=== PATIENT | female | born 1990 | race Caucasian/White ===

== ENCOUNTER 2016-12-20 20:42 | Emergency (ER) | payer OTHER ==
[~2016-12-20 20:42] MED LIST: COLA100C PO; IBUP80TA PO; LORT5TAB PO
[2016-12-20] MEDS ORDERED: MECLIZINE 12.5 MG TAB As Ordered ONE (22:58)
[2016-12-20 23:19] LABS: BASO % 0.6 % (0.0-1.0); EOS # 0.1 K/mm3 (0.0-0.50); EOS % 1.7 % (0.0-3.0); LARGE UNSTAINED CELL # 0.1 K/mm3 (0.0-0.4); LARGE UNSTAINED CELL % 1.8 % (0.0-4.0); MEAN CORPUSCULAR HEMOGLOBIN 30.6 pg (27.0-33.0); MEAN CORPUSCULAR HGB CONC 33.3 g/dl (32.0-36.5); MEAN CORPUSCULAR VOLUME 92.1 fl (80.0-96.0); MONO # 0.3 K/mm3 (0.0-0.8); MONO % 3.7 % (0.0-5.0); NEUTROPHILS # 4.4 K/mm3 (1.8-7.7); NEUTROPHILS % 63.1 % (36.0-66.0); PLATELET COUNT, AUTOMATED 231 k/mm3 (150-450); RED CELL DISTRIBUTION WIDTH 11.7 % (11.5-14.5); WHITE BLOOD COUNT 6.9 K/mm3 (4.0-10.0)
[2016-12-20 23:44] LABS: ANION GAP 8 MEQ/L (8-16); BLOOD UREA NITROGEN 10 MG/DL (7-18); CALCIUM LEVEL 9.2 MG/DL (8.5-10.1); CARBON DIOXIDE LEVEL 28 MEQ/L (21-32); CHLORIDE LEVEL 106 MEQ/L (98-107); CREATININE FOR GFR 0.85 MG/DL (0.55-1.02); GLOMERULAR FILTRATION RATE > 60.0 (>60); GLUCOSE, FASTING 85 MG/DL (70-105); POTASSIUM SERUM 3.7 MEQ/L (3.5-5.1); SODIUM LEVEL 142 MEQ/L (136-145)
--- NOTE | 2016-12-21 01:51 | EDDOCDS ---
Nurse's Notes [facility] Name: Amanda Rayo Age: 26 yrs Sex: Female : 1990 Arrival Date: 12/20/2016 Time: 20:42 Bed 12 Private MD: MO Agarwal Diagnosis: Dizziness and giddiness Presentation: 12/20 20:52 Presenting complaint: Patient states: At approximately 1830 has a sensation of jo3 dizziness while breast feeding child. Continuing to have intermittent dizziness and has vomited x1. Adult Sepsis Screening: The patient does not have new or worsening altered mentation. Patient's respiratory rate is less than 22. Systolic blood pressure is greater than 100. Patient has a qSOFA score of 0- Negative Sepsis Screen. Suicide/Homicide risk assessment- the patient denies having any suicidal and/or homicidal ideations and does not present with any other emotional, behavioral or mental health complaints. Status: The patient is a dependent. Transition of care: patient was not received from another setting of care. 20:52 Acuity: ANDRES Level 3 jo3 20:52 Method Of Arrival: Walkin/Carried/Asstd jo3 Triage Assessment: 20:54 General: Appears in no apparent distress, comfortable, Behavior is appropriate for age, jo3 cooperative. Pain: Pain currently is 4 out of 10 on a pain scale. HIV screening NA for this visit Offered previously. Neurological: Level of Consciousness is awake, alert, Oriented to person, place, time, Reports dizziness that worsens with movement and slight FRASER . Respiratory: Airway is patent Respiratory effort is even, unlabored. Derm: Skin is pink, warm & dry. BIBLE READER: 20:54 LMP 12/11/2016 jo3 Historical: - Allergies: Amoxicillin; SULFA (SULFONAMIDES); Toradol; - Home Meds: 1. none - PMHx: Asthma; GERD; - PSHx: ; - Social history: Smoking status: Patient states was never smoker of tobacco. No barriers to communication noted, The patient speaks fluent Maori, Speaks appropriately for age. - Family history: Not pertinent. - : The pt / caregiver states he / she is not on anticoagulants. Home medication list is obtained from the patient. - Exposure Risk Screening:: None identified. Screenin:25 Screening information is obtained from the patient. Fall risk: No risks identified. kas2 Assistance ADL's: requires no assistance with activities of daily living. Abuse/DV Screen: The patient / caregiver reports he/she is: not in a situation that causes fear, pain or injury. Nutritional screening: No deficits noted. Advance Directives: Currently, there is no health care proxy. There is no active DNR order. There is no living will. There is no Power of Vegetable Grower. home support is adequate. Assessment: 22:24 General: Appears in no apparent distress, comfortable, well nourished, well groomed, kas2 Behavior is appropriate for age, cooperative. Pain: Denies pain. Neurological: Level of Consciousness is awake, alert, Oriented to person, place, time, Information Systems Security Developer are equal bilaterally Moves all extremities. Speech is normal, Facial symmetry appears normal, Pupils are PERRLA. Cardiovascular: Capillary refill < 3 seconds Heart tones S1 S2 present Rhythm is sinus rhythm No ectopy. Respiratory: Airway is patent Respiratory effort is even, unlabored, Respiratory pattern is regular, symmetrical, Breath sounds are clear bilaterally. GI:. Derm: Skin is intact, Skin is dry, Skin is pink, warm & dry. Skin temperature is warm. 22:26 GI:. kas2 22:29 GI: Abdomen is obese, Bowel sounds present X 4 quads. Abd is soft and non tender X 4 kas2 quads. Reports nausea. 23:25 General: Appears in no apparent distress, comfortable, Behavior is appropriate for age, kas2 cooperative. Pain: Denies pain. Neurological: Level of Consciousness is awake, alert, Oriented to person, place, time. Cardiovascular: Rhythm is sinus rhythm No ectopy. Respiratory: Airway is patent Respiratory effort is even, unlabored, Respiratory pattern is regular, symmetrical. Derm: Skin is intact, Skin is dry, Skin is pink, warm & dry. Skin temperature is warm. 12/21 01:14 General: Patient resting in bed with friend at bedside. No apparent distress. Appears kas2 comfortable. Denies pain or discomfort at this time. Call newell within reach. Will continue to monitor.. Vital Signs: 12/20 20:45 BP 117 / 69; Pulse 78; Resp 18 S; Temp 96.3(O); Pulse Ox 99% on R/A; Weight 99.79 kg gr2 (R); Height 5 ft. 5 in. (165.10 cm) (R); Pain 2/10; 12/21 01:47 BP 109 / 66; Pulse 105; Resp 18; Temp 98.6; Pulse Ox 98% ; jlm 12/20 20:45 Body Mass Index 36.61 (99.79 kg, 165.10 cm) gr2 Vitals: 12/20 20:45 Log In Time: December 20, 2016 at 20:45. gr2 ED Course: 20:44 Patient visited by Bernadette Ortiz. gr2 20:44 Any [facility] [place] Private Physician. gr2 20:44 Patient moved to Waiting gr2 20:46 Patient visited by Bernadette Ortiz. gr2 20:46 Patient moved to Pre RCE gr2 20:54 Triage Initiated jo3 20:56 Patient visited by Clary Gilbert RN. jo3 21:12 Patient moved to PD2 / lf1 21:26 Patient visited by Lincoln Chirinos PCA. jmv 21:26 EKG done. (by ED staff). Reviewed by Marco Antonio Cosme DO. jmv 21:27 Patient moved to Pre RCE jmv 22:12 Isis Morel RN is Primary Nurse. lf1 22:12 Patient moved to 12 lf1 22:26 Patient visited by Isis Morel RN. kas2 22:30 Patient visited by Isis Morel RN. kas2 22:38 Marco Antonio Cosme DO is Attending Physician. mm11 22:38 Patient visited by Marco Antonio Cosme DO. mm11 22:49 Patient visited by Marco Antonio Cosme DO. mm11 23:16 Patient visited by Isis Morel RN. kas2 23:16 BMP Sent. kas2 23:16 CBC with Diff Sent. kas2 23:16 Inserted saline lock: 20 gauge in right antecubital area and blood collected. The kas2 patient tolerated the procedure well. No procedures done that require assistance. 23:30 Patient visited by Isis Morel RN. kas2 12/21 00:11 Patient visited by Isis Morel RN. kas2 00:11 REPLACED BY [facility] Payment Agreement was scanned into [employer]INK and attached to record. pm4 00:47 Patient visited by Isis Morel RN. kas2 01:26 Patient visited by Isis Morel RN. kas2 01:41 Any [facility] [place] is Referral Physician. mm11 01:47 Patient visited by Sharon Molina, [place] Machine Operator. jlm 01:49 Discontinued IV bleeding controlled, pressure dressing applied, No redness/swelling at kas2 site. 01:50 The patient / caregiver is instructed regarding the plan of care and ED course. kas2 Administered Medications: 12/20 23:16 Drug: NS 0.9% 1000 ml [sodium chloride 0.9 % intravenous solution] Route: IV; Rate: kas2 bolus; Site: right antecubital; 12/21 01:49 Follow up: IV Status: Completed infusion; IV Intake: 1000ml kas2 12/20 23:16 Drug: Meclizine 50 mg [meclizine 12.5 mg tablet (4 tabs)] Route: PO; kas2 Intake: 12/21 01:49 IV: 1000.00ml; Total: 1000.00ml. kas2 Order Results: Lab Order: CBC with Diff; SPEC'M 12/20/16 23:14 Test: WHITE BLOOD COUNT; Value: 6.9; Range: 4.0-10.0; Units: K/mm3; Status: F Test: RED BLOOD COUNT; Value: 4.72; Range: 4.00-5.40; Units: M/mm3; Status: F Test: HEMOGLOBIN; Value: 14.5; Range: 12.0-16.0; Units: g/dl; Status: F Test: HEMATOCRIT; Value: 43.4; Range: 36.0-47.0; Units: %; Status: F Test: MEAN CORPUSCULAR VOLUME; Value: 92.1; Range: 80.0-96.0; Units: fl; Status: F Test: MEAN CORPUSCULAR HEMOGLOBIN; Value: 30.6; Range: 27.0-33.0; Units: pg; Status: F Test: MEAN CORPUSCULAR HGB CONC; Value: 33.3; Range: 32.0-36.5; Units: g/dl; Status: F Test: RED CELL DISTRIBUTION WIDTH; Value: 11.7; Range: 11.5-14.5; Units: %; Status: F Test: PLATELET COUNT, AUTOMATED; Value: 231; Range: 150-450; Units: k/mm3; Status: F Test: NEUTROPHILS %; Value: 63.1; Range: 36.0-66.0; Units: %; Status: F Test: LYMPH %; Value: 29.0; Range: 24.0-44.0; Units: %; Status: F Test: MONO %; Value: 3.7; Range: 0.0-5.0; Units: %; Status: F Test: EOS %; Value: 1.7; Range: 0.0-3.0; Units: %; Status: F Test: BASO %; Value: 0.6; Range: 0.0-1.0; Units: %; Status: F Test: LARGE UNSTAINED CELL %; Value: 1.8; Range: 0.0-4.0; Units: %; Status: F Test: NEUTROPHILS #; Value: 4.4; Range: 1.8-7.7; Units: K/mm3; Status: F Test: LYMPH #; Value: 2.0; Range: 1.5-6.5; Units: K/mm3; Status: F Test: MONO #; Value: 0.3; Range: 0.0-0.8; Units: K/mm3; Status: F Test: EOS #; Value: 0.1; Range: 0.0-0.50; Units: K/mm3; Status: F Test: BASO #; Value: 0.0; Range: 0.0-0.2; Units: K/mm3; Status: F Test: LARGE UNSTAINED CELL #; Value: 0.1; Range: 0.0-0.4; Units: K/mm3; Status: F Lab Order: [facility]; SPEC'M 12/20/16 23:14 Test: GLUCOSE, FASTING; Value: 85; Range: 70-105; Units: MG/DL; Status: F Test: BLOOD UREA NITROGEN; Value: 10; Range: 7-18; Units: MG/DL; Status: F Test: CREATININE FOR GFR; Value: 0.85; Range: 0.55-1.02; Units: MG/DL; Status: F Test: GLOMERULAR FILTRATION RATE; Value: > 60.0; Range: >60; Status: F Test: SODIUM LEVEL; Value: 142; Range: 136-145; Units: MEQ/L; Status: F Test: POTASSIUM SERUM; Value: 3.7; Range: 3.5-5.1; Units: MEQ/L; Status: F Test: CHLORIDE LEVEL; Value: 106; Range: 98-107; Units: MEQ/L; Status: F Test: CARBON DIOXIDE LEVEL; Value: 28; Range: 21-32; Units: MEQ/L; Status: F Test: ANION GAP; Value: 8; Range: 8-16; Units: MEQ/L; Status: F Test: CALCIUM LEVEL; Value: 9.2; Range: 8.5-10.1; Units: MG/DL; Status: F Test Note: ; Units are mL/min/1.73 m2 Chronic Kidney Disease Staging per NKF: Stage I & II GFR >=60 Normal to Mildly Decreased Stage III GFR 30-59 Moderately Decreased Stage IV GFR 15-29 Severely Decreased Stage V GFR <15 Very Little GFR Left ESRD GFR <[address] REPORTER Outcome: 01:42 Discharge ordered by Provider. mm11 01:50 Discharge Assessment: patient administered narcotics - no. The following High Risk [facility] Discharge criteria are identified: None. Discharged to home ambulatory, with friend. Condition: good Condition: stable Condition: improved. No special radiology studies were completed. Property :Personal belongings accompany Pt. 01:50 Patient left the ED. [facility] Signatures: Clary GilbertRN RN [id number] Alyssa Crowley,RN RN lf1 Marco Antonio Cosme, DO mm11 Bernadette Ortiz gr2 Sharon Molina, [place] Machine Operator Unit Isis Grissom RN RN kas2 Lincoln Chirinos, FABRIC WORKER FOREMAN FABRIC WORKER FOREMAN jmv Bob Rojas, Reg Reg pm4 MTDD
--- NOTE | 2016-12-21 01:51 | EDDOCDS ---
Physician Documentation [facility] Name: Amanda Rayo Age: 26 yrs Sex: Female : 1990 Arrival Date: 12/20/2016 Time: 20:42 Bed 12 Private MD: MO Agarwal Disposition: 12/21/16 01:42 Discharged to Home/Self Care. Impression: Dizziness and giddiness. - Condition is Stable. - Discharge Instructions: Dizziness, Vertigo, Vertigo, Bijo-wc-Blgw, Dizziness, Vzfc-yb-[id number]. - Prescriptions for Meclizine 25 mg Oral Tablet - take 1 tablet by ORAL route every 8 hours As needed; 30 tablet. - Medication Reconciliation, Local Pharmacy Hours form. - Follow up: MO Agarwal; When: 2 - 3 days; Reason: Continuance of care. - Problem is an acute exacerbation. - Symptoms have improved. Historical: - Allergies: Amoxicillin; SULFA (SULFONAMIDES); Toradol; - Home Meds: 1. none - PMHx: Asthma; GERD; - PSHx: ; - Social history: Smoking status: Patient states was never smoker of tobacco. No barriers to communication noted, The patient speaks fluent Macedonian, Speaks appropriately for age. - Family history: Not pertinent. - : The pt / caregiver states he / she is not on anticoagulants. Home medication list is obtained from the patient. - Exposure Risk Screening:: None identified. SODA DRIER FEEDER: 12/20 20:54 LMP 12/11/2016 jo3 Vital Signs: 20:45 BP 117 / 69; Pulse 78; Resp 18 S; Temp 96.3(O); Pulse Ox 99% on R/A; Weight 99.79 kg / gr2 220 lbs (R); Height 5 ft. 5 in. (165.10 cm) (R); Pain /; 12/21 01:47 BP 109 / 66; Pulse 105; Resp 18; Temp 98.6; Pulse Ox 98% ; jlm 12/20 20:45 Body Mass Index 36.61 (99.79 kg, 165.10 cm) gr2 MDM: 12/20 20:57 ECG WITH READING ER PHYS+CARDIAG ordered. EDMS 22:50 IV Saline Lock ordered. mm11 22:50 NS 0.9% 1000 ml IV at bolus once ordered. mm11 22:50 Meclizine 50 mg PO once ordered. mm11 22:52 CBC with Diff Ordered. EDMS 22:52 BMP Ordered. EDMS 23:36 Financial registration complete. hs2 23:51 CBC with Diff Reviewed. mm11 23:51 BMP Reviewed. mm11 12/21 00:11 [facility] Payment Agreement was scanned into [employer] and attached to record. pm4 Administered Medications: 12/20 23:16 Drug: NS 0.9% 1000 ml [sodium chloride 0.9 % intravenous solution] Route: IV; Rate: kas2 bolus; Site: right antecubital; 12/21 01:49 Follow up: IV Status: Completed infusion; IV Intake: 1000ml [facility] 12/20 23:16 Drug: Meclizine 50 mg [meclizine 12.5 mg tablet (4 tabs)] Route: PO; kas2 Signatures: Dispatcher [employer] Clary Reese RN RN jo3 Marco Antonio Cosme, DO DO mm11 Marilia Owen, Reg Reg hs2 Isis Morel RN RN kas2 Bob Rojas, Reg Reg pm4 The chart was reviewed and I authenticate all verbal orders and agree with the evaluation and treatment provided.Attachments: 12/21 00:11 [facility] Payment Agreement pm4 MTDD
--- NOTE | 2016-12-22 09:02 | ECGEPIP ---
Stationary ECG Study [facility] - ED Test Date: 2016-12-20 Pat Name: ANETA WREN Department: Room: - Gender: F Child Attendant: ulysses : 1990 Requested By: KATYA Bishop Order Number: [id number] Reading MD: Susana Velazquez Measurements Intervals [place] Rate: 77 P: 18 TN: 126 QRS: 32 QRSD: 98 T: 27 QT: 380 QTc: 431 Interpretive Statements SINUS RHYTHM Electronically Signed On 12-22-2016 9:02:10 EST by Susana Velazquez
--- NOTE | 2016-12-23 02:51 | EDDOCDS ---
Physician Documentation [facility] Name: Amanda Rayo Age: 26 yrs Sex: Female : 1990 Arrival Date: 12/20/2016 Time: 20:42 Bed 12 Private MD: MO Agarwal Disposition: 12/21/16 01:42 Discharged to Home/Self Care. Impression: Dizziness and giddiness. - Condition is Stable. - Discharge Instructions: Dizziness, Vertigo, Vertigo, Fkbw-lx-Tzhc, Dizziness, Snok-vk-Kdjo. - Prescriptions for Meclizine 25 mg Oral Tablet - take 1 tablet by ORAL route every 8 hours As needed; 30 tablet. - Medication Reconciliation, Local Pharmacy Hours form. - Follow up: MO Agarwal; When: 2 - 3 days; Reason: Continuance of care. - Problem is an acute exacerbation. - Symptoms have improved. Historical: - Allergies: Amoxicillin; SULFA (SULFONAMIDES); Toradol; - Home Meds: 1. none - PMHx: Asthma; GERD; - PSHx: ; - Social history: Smoking status: Patient states was never smoker of tobacco. No barriers to communication noted, The patient speaks fluent Romanian, Speaks appropriately for age. - Family history: Not pertinent. - : The pt / caregiver states he / she is not on anticoagulants. Home medication list is obtained from the patient. - Exposure Risk Screening:: None identified. CONSERVATION BIOLOGY PROFESSOR: 12/20 20:54 LMP 12/11/2016 jo3 Vital Signs: 20:45 BP 117 / 69; Pulse 78; Resp 18 S; Temp 96.3(O); Pulse Ox 99% on R/A; Weight 99.79 kg / gr2 220 lbs (R); Height 5 ft. 5 in. (165.10 cm) (R); Pain /; 12/21 01:47 BP 109 / 66; Pulse 105; Resp 18; Temp 98.6; Pulse Ox 98% ; jlm 12/20 20:45 Body Mass Index 36.61 (99.79 kg, 165.10 cm) gr2 MDM: 12/20 20:57 ECG WITH READING ER PHYS+CARDIAG ordered. EDMS 22:50 IV Saline Lock ordered. mm11 22:50 NS 0.9% 1000 ml IV at bolus once ordered. mm11 22:50 Meclizine 50 mg PO once ordered. mm11 22:52 CBC with Diff Ordered. EDMS 22:52 BMP Ordered. EDMS 23:36 Financial registration complete. hs2 23:51 CBC with Diff Reviewed. mm11 23:51 BMP Reviewed. mm11 12/21 00:11 [facility] Payment Agreement was scanned into [employer] and attached to record. pm4 10:14 T-Sheet-- Draft Copy was scanned into [employer] and attached to record. gb 10:14 ECG/EKG was scanned into [employer] and attached to record. gb Administered Medications: 12/20 23:16 Drug: NS 0.9% 1000 ml [sodium chloride 0.9 % intravenous solution] Route: IV; Rate: kas2 bolus; Site: right antecubital; 12/21 01:49 Follow up: IV Status: Completed infusion; IV Intake: 1000ml kas2 12/20 23:16 Drug: Meclizine 50 mg [meclizine 12.5 mg tablet (4 tabs)] Route: PO; kas2 Signatures: Dispatcher [employer] EDMS Aster Smith, Reg Reg gb Clary Gilbert,RN RN jo3 Marco Antonio Cosme, DO mm11 Marilia Owen, Reg Reg hs2 Isis Morel RN RN kas2 Bob Rojas, Reg Reg pm4 The chart was reviewed and I authenticate all verbal orders and agree with the evaluation and treatment provided.Attachments: 12/21 00:11 [facility] Payment Agreement pm4 10:14 T-Sheet-- Draft Copy gb 10:14 ECG/EKG gb Chart Complete MTDD
--- NOTE | 2016-12-23 02:51 | EDDOCDS ---
Physician Documentation [facility] Name: Amanda Rayo Age: 26 yrs Sex: Female : 1990 Arrival Date: 12/20/2016 Time: 20:42 Bed 12 Private MD: MO Agarwal Disposition: 12/21/16 01:42 Discharged to Home/Self Care. Impression: Dizziness and giddiness. - Condition is Stable. - Discharge Instructions: Dizziness, Vertigo, Vertigo, Ilnj-om-Fbdx, Dizziness, Nqfs-[id number]. - Prescriptions for Meclizine 25 mg Oral Tablet - take 1 tablet by ORAL route every 8 hours As needed; 30 tablet. - Medication Reconciliation, Local Pharmacy Hours form. - Follow up: MO Agarwal; When: 2 - 3 days; Reason: Continuance of care. - Problem is an acute exacerbation. - Symptoms have improved. Historical: - Allergies: Amoxicillin; SULFA (SULFONAMIDES); Toradol; - Home Meds: 1. none - PMHx: Asthma; GERD; - PSHx: ; - Social history: Smoking status: Patient states was never smoker of tobacco. No barriers to communication noted, The patient speaks fluent Latvian, Speaks appropriately for age. - Family history: Not pertinent. - : The pt / caregiver states he / she is not on anticoagulants. Home medication list is obtained from the patient. - Exposure Risk Screening:: None identified. VAN DRIVER: 12/20 20:54 LMP 12/11/2016 jo3 Vital Signs: 20:45 BP 117 / 69; Pulse 78; Resp 18 S; Temp 96.3(O); Pulse Ox 99% on R/A; Weight 99.79 kg / gr2 220 lbs (R); Height 5 ft. 5 in. (165.10 cm) (R); Pain /; 12/21 01:47 BP 109 / 66; Pulse 105; Resp 18; Temp 98.6; Pulse Ox 98% ; jlm 12/20 20:45 Body Mass Index 36.61 (99.79 kg, 165.10 cm) gr2 MDM: 12/20 20:57 ECG WITH READING ER PHYS+CARDIAG ordered. EDMS 22:50 IV Saline Lock ordered. mm11 22:50 NS 0.9% 1000 ml IV at bolus once ordered. mm11 22:50 Meclizine 50 mg PO once ordered. mm11 22:52 CBC with Diff Ordered. EDMS 22:52 BMP Ordered. EDMS 23:36 Financial registration complete. hs2 23:51 CBC with Diff Reviewed. mm11 23:51 BMP Reviewed. mm11 12/21 00:11 [facility] Payment Agreement was scanned into [employer] and attached to record. pm4 10:14 T-Sheet-- Draft Copy was scanned into [employer] and attached to record. gb 10:14 ECG/EKG was scanned into MEDHOST and attached to record. gb Administered Medications: 12/20 23:16 Drug: NS 0.9% 1000 ml [sodium chloride 0.9 % intravenous solution] Route: IV; Rate: kas2 bolus; Site: right antecubital; 12/21 01:49 Follow up: IV Status: Completed infusion; IV Intake: 1000ml kas2 12/20 23:16 Drug: Meclizine 50 mg [meclizine 12.5 mg tablet (4 tabs)] Route: PO; kas2 Signatures: Dispatcher [employer] EDMS Aster Smith, Reg Reg gb Clary Gilbert,RN RN jo3 Marco Antonio Cosme, DO mm11 Marilia Owen, Reg Reg hs2 Isis Morel RN RN kas2 Bob Rojas, Reg Reg pm4 The chart was reviewed and I authenticate all verbal orders and agree with the evaluation and treatment provided.Attachments: 12/21 00:11 [facility] Payment Agreement pm4 10:14 T-Sheet-- Draft Copy gb 10:14 ECG/EKG gb Chart Complete MTDD
--- NOTE | 2016-12-23 02:51 | EDDOCDS ---
Nurse's Notes [facility] Name: Aneta Rayo Age: 26 yrs Sex: Female : 1990 Arrival Date: 12/20/2016 Time: 20:42 Bed 12 Private MD: MO Agarwal Diagnosis: Dizziness and giddiness Presentation: 12/20 20:52 Presenting complaint: Patient states: At approximately 1830 has a sensation of jo3 dizziness while breast feeding child. Continuing to have intermittent dizziness and has vomited x1. Adult Sepsis Screening: The patient does not have new or worsening altered mentation. Patient's respiratory rate is less than 22. Systolic blood pressure is greater than 100. Patient has a qSOFA score of 0- Negative Sepsis Screen. Suicide/Homicide risk assessment- the patient denies having any suicidal and/or homicidal ideations and does not present with any other emotional, behavioral or mental health complaints. Status: The patient is a dependent. Transition of care: patient was not received from another setting of care. 20:52 Acuity: ANDRES Level 3 jo3 20:52 Method Of Arrival: Walkin/Carried/Asstd jo3 Triage Assessment: 20:54 General: Appears in no apparent distress, comfortable, Behavior is appropriate for age, jo3 cooperative. Pain: Pain currently is 4 out of 10 on a pain scale. HIV screening NA for this visit Offered previously. Neurological: Level of Consciousness is awake, alert, Oriented to person, place, time, Reports dizziness that worsens with movement and slight FRASER . Respiratory: Airway is patent Respiratory effort is even, unlabored. Derm: Skin is pink, warm & dry. SEASONAL CUSTOMER SERVICE ASSOCIATE: 20:54 LMP 12/11/2016 jo3 Historical: - Allergies: Amoxicillin; SULFA (SULFONAMIDES); Toradol; - Home Meds: 1. none - PMHx: Asthma; GERD; - PSHx: ; - Social history: Smoking status: Patient states was never smoker of tobacco. No barriers to communication noted, The patient speaks fluent Ma[place], Speaks appropriately for age. - Family history: Not pertinent. - : The pt / caregiver states he / she is not on anticoagulants. Home medication list is obtained from the patient. - Exposure Risk Screening:: None identified. Screenin:25 Screening information is obtained from the patient. Fall risk: No risks identified. kas2 Assistance ADL's: requires no assistance with activities of daily living. Abuse/DV Screen: The patient / caregiver reports he/she is: not in a situation that causes fear, pain or injury. Nutritional screening: No deficits noted. Advance Directives: Currently, there is no health care proxy. There is no active DNR order. There is no living will. There is no Power of Horticulture/Floriculture Teacher. home support is adequate. Assessment: 22:24 General: Appears in no apparent distress, comfortable, well nourished, well groomed, kas2 Behavior is appropriate for age, cooperative. Pain: Denies pain. Neurological: Level of Consciousness is awake, alert, Oriented to person, place, time, Golf Course Starter are equal bilaterally Moves all extremities. Speech is normal, Facial symmetry appears normal, Pupils are PERRLA. Cardiovascular: Capillary refill < 3 seconds Heart tones S1 S2 present Rhythm is sinus rhythm No ectopy. Respiratory: Airway is patent Respiratory effort is even, unlabored, Respiratory pattern is regular, symmetrical, Breath sounds are clear bilaterally. GI:. Derm: Skin is intact, Skin is dry, Skin is pink, warm & dry. Skin temperature is warm. 22:26 GI:. kas2 22:29 GI: Abdomen is obese, Bowel sounds present X 4 quads. Abd is soft and non tender X 4 kas2 quads. Reports nausea. 23:25 General: Appears in no apparent distress, comfortable, Behavior is appropriate for age, kas2 cooperative. Pain: Denies pain. Neurological: Level of Consciousness is awake, alert, Oriented to person, place, time. Cardiovascular: Rhythm is sinus rhythm No ectopy. Respiratory: Airway is patent Respiratory effort is even, unlabored, Respiratory pattern is regular, symmetrical. Derm: Skin is intact, Skin is dry, Skin is pink, warm & dry. Skin temperature is warm. 12/21 01:14 General: Patient resting in bed with friend at bedside. No apparent distress. Appears kas2 comfortable. Denies pain or discomfort at this time. Call newell within reach. Will continue to monitor.. Vital Signs: 12/20 20:45 BP 117 / 69; Pulse 78; Resp 18 S; Temp 96.3(O); Pulse Ox 99% on R/A; Weight 99.79 kg gr2 (R); Height 5 ft. 5 in. (165.10 cm) (R); Pain 2/10; 12/21 01:47 BP 109 / 66; Pulse 105; Resp 18; Temp 98.6; Pulse Ox 98% ; jlm 12/20 20:45 Body Mass Index 36.61 (99.79 kg, 165.10 cm) gr2 Vitals: 12/20 20:45 Log In Time: December 20, 2016 at 20:45. gr2 ED Course: 20:44 Patient visited by Bernadette Ortiz. gr2 20:44 Any [facility] is Private Physician. gr2 20:44 Patient moved to Waiting gr2 20:46 Patient visited by Bernadette Ortiz. gr2 20:46 Patient moved to Pre RCE gr2 20:54 Triage Initiated jo3 20:56 Patient visited by Clary Gilbert RN. jo3 21:12 Patient moved to PD2 / lf1 21:26 Patient visited by Lincoln Chirinos PCA. jmv 21:26 EKG done. (by ED staff). Reviewed by Marco Antonio Cosme DO. jmv 21:27 Patient moved to Pre RCE jmv 22:12 Isis Morel RN is Primary Nurse. lf1 22:12 Patient moved to 12 lf1 22:26 Patient visited by Isis Morel RN. kas2 22:30 Patient visited by Isis Morel RN. kas2 22:38 Marco nAtonio Cosme DO is Attending Physician. mm11 22:38 Patient visited by Marco Antonio Cosme DO. mm11 22:49 Patient visited by Marco Antonio Cosme DO. mm11 23:16 Patient visited by Isis Morel RN. kas2 23:16 BMP Sent. kas2 23:16 CBC with Diff Sent. kas2 23:16 Inserted saline lock: 20 gauge in right antecubital area and blood collected. The kas2 patient tolerated the procedure well. No procedures done that require assistance. 23:30 Patient visited by Isis Morel RN. kas2 12/21 00:11 Patient visited by Isis Morel RN. kas2 00:11 [facility] Payment Agreement was scanned into [facility] and attached to record. pm4 00:47 Patient visited by Isis Morel RN. kas2 01:26 Patient visited by Isis Morel RN. kas2 01:41 Any [facility] is Referral Physician. mm11 01:47 Patient visited by Sharon oMlina, Boiling Tub Operator. jlm 01:49 Discontinued IV bleeding controlled, pressure dressing applied, No redness/swelling at kas2 site. 01:50 The patient / caregiver is instructed regarding the plan of care and ED course. [facility] 10:14 T-Sheet-- Draft Copy was scanned into [facility] and attached to record. gb 10:14 ECG/EKG was scanned into [facility] and attached to record. gb 12/22 09:17 EKG-ADULT Returned. EDMS Administered Medications: 12/20 23:16 Drug: NS 0.9% 1000 ml [sodium chloride 0.9 % intravenous solution] Route: IV; Rate: kas2 bolus; Site: right antecubital; 12/21 01:49 Follow up: IV Status: Completed infusion; IV Intake: 1000ml kas2 12/20 23:16 Drug: Meclizine 50 mg [meclizine 12.5 mg tablet (4 tabs)] Route: PO; kas2 Intake: 12/21 01:49 IV: 1000.00ml; Total: 1000.00ml. kas2 Order Results: Lab Order: CBC with Diff; SPEC'M 12/20/16 23:14 Test: WHITE BLOOD COUNT; Value: 6.9; Range: 4.0-10.0; Units: K/mm3; Status: F Test: RED BLOOD COUNT; Value: 4.72; Range: 4.00-5.40; Units: M/mm3; Status: F Test: HEMOGLOBIN; Value: 14.5; Range: 12.0-16.0; Units: g/dl; Status: F Test: HEMATOCRIT; Value: 43.4; Range: 36.0-47.0; Units: %; Status: F Test: MEAN CORPUSCULAR VOLUME; Value: 92.1; Range: 80.0-96.0; Units: fl; Status: F Test: MEAN CORPUSCULAR HEMOGLOBIN; Value: 30.6; Range: 27.0-33.0; Units: pg; Status: F Test: MEAN CORPUSCULAR HGB CONC; Value: 33.3; Range: 32.0-36.5; Units: g/dl; Status: F Test: RED CELL DISTRIBUTION WIDTH; Value: 11.7; Range: 11.5-14.5; Units: %; Status: F Test: PLATELET COUNT, AUTOMATED; Value: 231; Range: 150-450; Units: k/mm3; Status: F Test: NEUTROPHILS %; Value: 63.1; Range: 36.0-66.0; Units: %; Status: F Test: LYMPH %; Value: 29.0; Range: 24.0-44.0; Units: %; Status: F Test: MONO %; Value: 3.7; Range: 0.0-5.0; Units: %; Status: F Test: EOS %; Value: 1.7; Range: 0.0-3.0; Units: %; Status: F Test: BASO %; Value: 0.6; Range: 0.0-1.0; Units: %; Status: F Test: LARGE UNSTAINED CELL %; Value: 1.8; Range: 0.0-4.0; Units: %; Status: F Test: NEUTROPHILS #; Value: 4.4; Range: 1.8-7.7; Units: K/mm3; Status: F Test: LYMPH #; Value: 2.0; Range: 1.5-6.5; Units: K/mm3; Status: F Test: MONO #; Value: 0.3; Range: 0.0-0.8; Units: K/mm3; Status: F Test: EOS #; Value: 0.1; Range: 0.0-0.50; Units: K/mm3; Status: F Test: BASO #; Value: 0.0; Range: 0.0-0.2; Units: K/mm3; Status: F Test: LARGE UNSTAINED CELL #; Value: 0.1; Range: 0.0-0.4; Units: K/mm3; Status: F Lab Order: [facility]; SPEC'M 12/20/16 23:14 Test: GLUCOSE, FASTING; Value: 85; Range: 70-105; Units: MG/DL; Status: F Test: BLOOD UREA NITROGEN; Value: 10; Range: 7-18; Units: MG/DL; Status: F Test: CREATININE FOR GFR; Value: 0.85; Range: 0.55-1.02; Units: MG/DL; Status: F Test: GLOMERULAR FILTRATION RATE; Value: > 60.0; Range: >60; Status: F Test: SODIUM LEVEL; Value: 142; Range: 136-145; Units: MEQ/L; Status: F Test: POTASSIUM SERUM; Value: 3.7; Range: 3.5-5.1; Units: MEQ/L; Status: F Test: CHLORIDE LEVEL; Value: 106; Range: 98-107; Units: MEQ/L; Status: F Test: CARBON DIOXIDE LEVEL; Value: 28; Range: 21-32; Units: MEQ/L; Status: F Test: ANION GAP; Value: 8; Range: 8-16; Units: MEQ/L; Status: F Test: CALCIUM LEVEL; Value: 9.2; Range: 8.5-10.1; Units: MG/DL; Status: F Test Note: ; Units are mL/min/1.73 m2 Chronic Kidney Disease Staging per NKF: Stage I & II GFR >=60 Normal to Mildly Decreased Stage III GFR 30-59 Moderately Decreased Stage IV GFR 15-29 Severely Decreased Stage V GFR <15 Very Little GFR Left ESRD GFR <15 on SUPERVISOR CUTTING DEPARTMENT Radiology Order: EKG-ADULT Test: EKG-ADULT REASON FOR EXAMINATION: Dizziness ; Stationary ECG Study; [facility] - ED; ; Test Date: 2016-12-20; Pat Name: ANETA RAYO Department:; Room: -; Gender: F Upstairs Maid: ulysses; : 1990 Requested By: KATYA Bishop; Order Number: [id number] Reading MD: Susana Velazquez; Measurements; Intervals [place]; Rate: 77 P: 18; AR: 126 QRS: 32; QRSD: 98 T: 27; QT: 380; QTc: 431; Interpretive Statements; SINUS RHYTHM; ; Electronically Signed On 12-22-2016 9:02:10 EST by Susana Velazquez; Outcome: 01:42 Discharge ordered by Provider. mm11 01:50 Discharge Assessment: patient administered narcotics - no. The following High Risk [facility] Discharge criteria are identified: None. Discharged to home ambulatory, with friend. Condition: good Condition: stable Condition: improved. No special radiology studies were completed. Property :Personal belongings accompany Pt. 01:50 Patient left the ED. kas2 Signatures: Dispatcher [employer] EDMS Aster Smith, Reg Reg gb Clary Gilbert,RN RN [id number] Alyssa Crowley,RN RN lf1 Marco Antonio Cosme, DO DO mm11 Bernadette Ortiz gr2 Sharon Molina, Boiling Tub Operator Unit jlIsis Arnold,RN RN kas2 Lincoln Chirinos, HEALTH CARE SOCIAL WORKER HEALTH CARE SOCIAL WORKER jmv Bob Rojas, Reg Reg pm4 Chart Complete MTDD
== END 2016-12-21 01:50 | disposition home or self-care (01) ==
LOC: M ED 20:42
DX: R42 Dizziness and giddiness (principal); J45.909 Unspecified asthma, uncomplicated; K21.9 Gastro-esophageal reflux disease without esophagitis; Z88.0 Allergy status to penicillin; Z88.2 Allergy status to sulfonamides; Z88.8 Allergy status to other drugs, medicaments and biological substances

== ENCOUNTER 2017-05-09 18:33 | Emergency (ER) | payer OTHER ==
[~2017-05-09] VITALS: Ht 165.1 cm; Wt 105.0 kg
[~2017-05-09 18:33] MED LIST changes: -COLA100C PO; +COLA100C5 PO
[2017-05-09] MEDS ORDERED: MULT1CHW39 PO (18:46)
[2017-05-09] MEDS ORDERED: traMADol 50 MG TAB PO ONE (19:45)
[2017-05-09] MEDS ORDERED: IBUP-1022 PO (20:20)
[2017-05-09] MEDS ORDERED: KEFL500C17 PO (20:20)
[2017-05-09] MEDS ORDERED: CEPHALEXIN 500 MG CAP PO ONE (20:30)
[2017-05-09 20:40] VITALS: BP 125/86
--- NOTE | 2017-05-10 00:55 | REP ---
Clinical: Trauma. Technique: AP, lateral, bilateral oblique views left first toe . Findings: The osseous structures and joint spaces are intact and normal. There is no evidence for acute fracture or dislocation. Surrounding soft tissues are unremarkable. No subcutaneous emphysema or radiodense foreign body. Impression: Normal examination. No acute fracture or dislocation. Signed by Jaydon Brown MD 05/10/2017 12:47 A
== END 2017-05-09 20:42 | disposition home or self-care (01) ==
LOC: M ED 20:39
DX: S90.412A Abrasion, left great toe, initial encounter (principal); W17.89XA Other fall from one level to another, initial encounter; Y92.410 Unspecified street and highway as the place of occurrence of the external cause; Y93.55 Activity, bike riding; Y99.8 Other external cause status; J45.909 Unspecified asthma, uncomplicated; Z79.899 Other long term (current) drug therapy; Z88.1 Allergy status to other antibiotic agents; Z88.2 Allergy status to sulfonamides; Z88.8 Allergy status to other drugs, medicaments and biological substances

== ENCOUNTER → 2019-02-18 | Outpatient (REF) | payer OTHER ==
[~2019-02-18] MED LIST changes: +IBUP-1022 PO; +KEFL500C17 PO; +MULT200T7 PO
[2019-02-21 00:06] LABS: RUBEOLA IgG ANTIBODY <25.0 AU/mL (Immune >29.9)
== END ==
LOC: M SFHCLERA 09:43
PROVIDERS: ATTEND Physician Assistant
DX: R21 Rash and other nonspecific skin eruption (principal)

== ENCOUNTER → 2020-03-18 | Outpatient (REF) | payer OTHER | LOC: M SFHCWAGY 10:12 | PROVIDERS: ATTEND Nurse Practitioner Women's Health | DX: Z12.4 Encounter for screening for malignant neoplasm of cervix (principal) ==

== ENCOUNTER 2022-07-09 03:31 | Emergency (ER) | payer OTHER ==
[~2022-07-09] VITALS: Ht 165.1 cm; Wt 105.7 kg
[2022-07-09] MEDS ORDERED: MIDOTAB PO (03:36)
[2022-07-09 04:53] LABS: BASO # 0.1 10^3/uL (0.0-0.2); BASO % 0.3 % (0.0-1.0); EOS # 0.1 10^3/uL (0.0-0.5); EOS % 0.7 % (0.0-3.0); HEMATOCRIT 42.5 % (36.0-47.0); HEMOGLOBIN 14.1 g/dl (12.0-15.5); LYMPH # 1.2 10^3/uL (1.5-5.0); LYMPH % 7.2 % (24.0-44.0); MEAN CORPUSCULAR HEMOGLOBIN 30.8 pg (27.0-33.0); MEAN CORPUSCULAR HGB CONC 33.2 g/dl (32.0-36.5); MEAN CORPUSCULAR VOLUME 92.8 fl (80.0-96.0); MONO # 1.1 10^3/uL (0.0-0.8); MONO % 6.5 % (2.0-8.0); NEUTROPHILS # 14.3 10^3/uL (1.5-8.5); NEUTROPHILS % 84.7 % (36.0-66.0); PLATELET COUNT, AUTOMATED 221 10^3/uL (150-450); RED BLOOD COUNT 4.58 10^6/uL (4.00-5.40); WHITE BLOOD COUNT 16.9 10^3/uL (4.0-10.0)
[2022-07-09] MEDS ORDERED: ONDANSETRON 4MG 2ML VIAL IV ONE (05:20)
[2022-07-09] MEDS ORDERED: MORPHINE 2 MG/ML 1ML VIAL IV ONE (05:20)
[2022-07-09 05:27] LABS: RSV AMPLIFICATION NEGATIVE (NEGATIVE)
[2022-07-09 05:27] LABS: ALBUMIN 3.9 GM/DL (3.2-5.2); ALT/SGPT 29 U/L (12-78); BILIRUBIN,DIRECT 0.1 MG/DL (0.0-0.2); BILIRUBIN,TOTAL 0.7 MG/DL (0.2-1.0); BLOOD UREA NITROGEN 9 MG/DL (7-18); CALCIUM LEVEL 8.8 MG/DL (8.5-10.1); CARBON DIOXIDE LEVEL 24 MEQ/L (21-32); CHLORIDE LEVEL 106 MEQ/L (98-107); CREATININE FOR GFR 0.75 MG/DL (0.55-1.30); GLOMERULAR FILTRATION RATE > 60.0 (>60); GLUCOSE, FASTING 110 MG/DL (70-100); LIPASE 99 U/L (73-393); POTASSIUM SERUM 3.7 MEQ/L (3.5-5.1); SODIUM LEVEL 135 MEQ/L (136-145)
[2022-07-09 06:23] LABS: BACTERIA, URINE MOD AMOUNT; HYALINE CAST, URINE NONE SEEN /lpf (0-1); SQUAMOUS EPITHELIAL CELL URINE MOD AMOUNT /hpf (SMALL AMT)
[2022-07-09] MEDS ORDERED: CIPROFLOXACIN 400 MG in IV 1 EA IV ONE (07:55)
[2022-07-09] MEDS ORDERED: MORPHINE 4 MG/ML 1ML VIAL/SYRINGE IV ONE (09:30)
[2022-07-09] MEDS ORDERED: NS 1,000 ML IV ONE (09:30)
[2022-07-09] MEDS ORDERED: metroNIDAZOLE (FLAGYL) 500MG TABLET PO ONE (11:55)
[2022-07-09] MEDS ORDERED: HYDR-3713 PO (11:56)
[2022-07-09] MEDS ORDERED: CIPR-249 PO (11:56)
[2022-07-09] MEDS ORDERED: METR-265 PO (11:56)
[2022-07-09] MEDS ORDERED: ONDA4TAB6 PO (11:56)
[2022-07-09 12:05] VITALS: BP 111/65
== END 2022-07-09 12:10 | disposition home or self-care (01) ==
LOC: M ED 03:31
DX: R10.32 Left lower quadrant pain (principal); R82.71 Bacteriuria; R93.2 Abnormal findings on diagnostic imaging of liver and biliary tract; Z88.1 Allergy status to other antibiotic agents; Z88.2 Allergy status to sulfonamides; Z88.8 Allergy status to other drugs, medicaments and biological substances
CPT/HCPCS: 74176; 76856; 80048; 80076; 81000; 81015; 83605; 83690; 84702; 85025; 87631; 93976; 96365; 96366; 96375; 96376; 99284; J0744; J2270; J2405

== ENCOUNTER → 2022-07-18 | Outpatient (REF) | payer OTHER ==
[~2022-07-18] MED LIST changes: +CIPR-249 PO; +HYDR-3713 PO; +METR-265 PO; +MIDOTAB PO; +ONDA4TAB6 PO
[2022-07-18 17:53] LABS: APPEARANCE, URINE MANUAL HAZY (CLEAR); COLOR, URINE MANUAL YELLOW (YELLOW)
[2022-07-18 17:54] LABS: BILIRUBIN, URINE MANUAL NEGATIVE (NEGATIVE); GLUCOSE, URINE (UA) MANUAL NEGATIVE (NEGATIVE); KETONE, URINE MANUAL NEGATIVE (NEGATIVE); PROTEIN, URINE MANUAL NEGATIVE (NEGATIVE); UROBILINOGEN, URINE MANUAL NORMAL (NORMAL)
[2022-07-18 17:55] LABS: BLOOD URINE MANUAL POSITIVE (NEGATIVE); LEUKOCYTE ESTERASE, URINE MAN NEGATIVE (NEGATIVE); NITRITE, URINE MANUAL NEGATIVE (NEGATIVE)
[2022-07-18 18:07] LABS: BACTERIA, URINE SMALL AMOUNT; HYALINE CAST, URINE NONE SEEN /lpf (0-1); RBC, URINE NONE SEEN /hpf (0-3); SQUAMOUS EPITHELIAL CELL URINE SMALL AMOUNT /hpf (SMALL AMT); WBC, URINE NONE SEEN /hpf (0-3)
== END ==
LOC: M SMT 17:10
PROVIDERS: ATTEND Physician Assistant
DX: R31.21 Asymptomatic microscopic hematuria (principal)

== ENCOUNTER → 2023-03-05 | Outpatient (REF) | payer OTHER | LOC: M SFHCWAGY 10:07 | PROVIDERS: ATTEND Nurse Practitioner Family | DX: Z12.4 Encounter for screening for malignant neoplasm of cervix (principal); Z01.419 Encounter for gynecological examination (general) (routine) without abnormal findings; Z77.9 Other contact with and (suspected) exposures hazardous to health ==

== ENCOUNTER → 2024-02-14 | Outpatient (CLI) | payer OTHER | LOC: M RAD 15:04 | PROVIDERS: ATTEND Physician Assistant Medical | DX: M71.22 Synovial cyst of popliteal space [Baker], left knee (principal) ==

== ENCOUNTER → 2024-04-11 | Outpatient (CLI) | payer OTHER | LOC: M WHC 13:47 | PROVIDERS: ATTEND Nurse Practitioner Family | DX: E27.8 Other specified disorders of adrenal gland (principal); N88.8 Other specified noninflammatory disorders of cervix uteri ==

== ENCOUNTER → 2024-06-16 | Outpatient (CLI) | payer OTHER ==
[~2024-06-16] MED LIST changes: +ONDA-282 PO; -ONDA4TAB6 PO
== END ==
LOC: M RAD 13:14
PROVIDERS: ATTEND Nurse Practitioner Family
DX: N83.202 Unspecified ovarian cyst, left side (principal)

== ENCOUNTER → 2024-06-25 | Outpatient (REF) | payer OTHER ==
[2024-06-25 14:30] LABS: APPEARANCE, URINE HAZY (CLEAR); BACTERIA, URINE AUTO 1+ (NEGATIVE); BILIRUBIN, URINE AUTO NEGATIVE (NEGATIVE); BLOOD, URINE BLOOD 1+ (NEGATIVE); CALCIUM OXALATE CRYSTALS MODERATE; COLOR, URINE YELLOW (YELLOW); GLUCOSE, URINE (UA) AUTO NEGATIVE (NEGATIVE); KETONE, URINE AUTO NEGATIVE (NEGATIVE); LEUKOCYTE ESTERASE, URINE AUTO NEGATIVE (NEGATIVE); MUCUS, URINE SMALL (NEGATIVE); NITRITE, URINE AUTO NEGATIVE (NEGATIVE); PROTEIN, URINE AUTO NEGATIVE (NEGATIVE); RBC, URINE AUTO 4 /HPF (0-3); SPECIFIC GRAVITY URINE AUTO 1.023 (1.002-1.035); SQUAMOUS EPITHELIAL CELL UR AU 0 /HPF (0-6); UROBILINOGEN, URINE AUTO 0.2 mg/dL (0.0-2.0); WBC, URINE AUTO 2 /HPF (0-3)
== END ==
LOC: M SMT 12:43
PROVIDERS: ATTEND Physician Assistant
DX: D49.4 Neoplasm of unspecified behavior of bladder (principal)

== ENCOUNTER → 2024-06-26 | Outpatient (REF) | payer OTHER | LOC: M LAB REF 13:08 | PROVIDERS: ATTEND Physician Assistant | DX: D49.4 Neoplasm of unspecified behavior of bladder (principal) ==

== ENCOUNTER → 2024-07-18 | Outpatient (CLI) | payer OTHER ==
[~2024-07-18] MED LIST changes: +ISOVUE-370 76% 100ML VIAL As Ordered ONE
== END ==
LOC: M RAD 13:37
PROVIDERS: ATTEND Urology
DX: N32.89 Other specified disorders of bladder (principal)

== ENCOUNTER 2024-07-25 01:28 | Emergency (ER) | payer OTHER ==
[~2024-07-25] VITALS: Ht 165.1 cm; Wt 93.2 kg
[~2024-07-25 01:28] MED LIST changes: -ISOVUE-370 76% 100ML VIAL As Ordered ONE
[2024-07-25 02:45] LABS: BASO % 0.2 % (0.0-1.0); EOS # 0.2 10^3/uL (0.0-0.5); EOS % 1.5 % (0.0-3.0); HEMATOCRIT 47.3 % (36.0-47.0); HEMOGLOBIN 16.7 g/dl (12.0-15.5); LYMPH % 8.9 % (24.0-44.0); MEAN CORPUSCULAR HEMOGLOBIN 31.9 pg (27.0-33.0); MEAN CORPUSCULAR HGB CONC 35.3 g/dl (32.0-36.5); MEAN CORPUSCULAR VOLUME 90.3 fl (80.0-96.0); MONO # 0.6 10^3/uL (0.0-0.8); MONO % 5.1 % (2.0-8.0); NEUTROPHILS # 9.9 10^3/uL (1.5-8.5); PLATELET COUNT, AUTOMATED 306 10^3/uL (150-450); RED BLOOD COUNT 5.24 10^6/uL (4.00-5.40); WHITE BLOOD COUNT 11.7 10^3/uL (4.0-10.0)
[2024-07-25] MEDS: NS 1,000 ML IV ONE (03:36)
[2024-07-25 04:07] LABS: HCG, SERUM QUALITATIVE NEGATIVE (NEGATIVE)
[2024-07-25 04:17] LABS: ALBUMIN 3.9 G/DL (3.2-5.2); ALKALINE PHOSPHATASE 53 U/L (46-116); ALT/SGPT 37 U/L (7.0-40); AST/SGOT 23 U/L (<34); BILIRUBIN,DIRECT 0.2 MG/DL (<0.4); BILIRUBIN,TOTAL 0.8 MG/DL (0.3-1.2); BLOOD UREA NITROGEN 11 MG/DL (9-23); CALCIUM LEVEL 9.3 MG/DL (8.5-10.1); CARBON DIOXIDE LEVEL 21 MMOL/L (20-31); CHLORIDE LEVEL 110 MMOL/L (98-107); CREATININE FOR GFR 0.76 MG/DL (0.55-1.30); GLOMERULAR FILTRATION RATE > 60.0 (>60); GLUCOSE, FASTING 97 MG/DL (60-100); LIPASE 33 U/L (12-53); POTASSIUM SERUM 3.6 MMOL/L (3.5-5.1); SODIUM LEVEL 139 MMOL/L (136-145); TOTAL PROTEIN 7.2 G/DL (5.7-8.2)
[2024-07-25] MEDS: ACETAMINOPHEN TAB 650MG DOSE (2X325MG) PO ONE (06:29)
[2024-07-25 06:30] VITALS: BP 142/74; TEMP 97; O2SAT 99
== END 2024-07-25 06:55 | disposition home or self-care (01) ==
LOC: M ED 01:28
DX: A04.4 Other intestinal Escherichia coli infections (principal); Z88.1 Allergy status to other antibiotic agents; Z88.2 Allergy status to sulfonamides; Z79.1 Long term (current) use of non-steroidal anti-inflammatories (NSAID); Z79.2 Long term (current) use of antibiotics; Z79.899 Other long term (current) drug therapy

== ENCOUNTER → 2024-08-22 | Outpatient (CLI) | payer OTHER ==
[~2024-08-22] MED LIST changes: -MULT200T7 PO; +MULT200T9 PO; +NORG1TAB33 PO; +TIRZ10PE3 SC; +ZOLO25TA PO
[2024-08-22 09:54] LABS: INR 1.01
[2024-08-22 09:58] LABS: HEMOGLOBIN 14.3 g/dl (12.0-15.5); MEAN CORPUSCULAR HEMOGLOBIN 31.9 pg (27.0-33.0); MEAN CORPUSCULAR VOLUME 93.8 fl (80.0-96.0); PLATELET COUNT, AUTOMATED 257 10^3/uL (150-450); RED BLOOD COUNT 4.48 10^6/uL (4.00-5.40); WHITE BLOOD COUNT 6.8 10^3/uL (4.0-10.0)
[2024-08-22 11:15] LABS: ALBUMIN 3.3 G/DL (3.2-5.2); ALKALINE PHOSPHATASE 49 U/L (46-116); ALT/SGPT 24 U/L (7.0-40); AST/SGOT 17 U/L (<34); BILIRUBIN,TOTAL 0.6 MG/DL (0.3-1.2); BLOOD UREA NITROGEN 9 MG/DL (9-23); CALCIUM LEVEL 8.8 MG/DL (8.5-10.1); CARBON DIOXIDE LEVEL 27 MMOL/L (20-31); CHLORIDE LEVEL 108 MMOL/L (98-107); CREATININE FOR GFR 0.71 MG/DL (0.55-1.30); GLOMERULAR FILTRATION RATE > 60.0 (>60); GLUCOSE, FASTING 70 MG/DL (60-100); SODIUM LEVEL 138 MMOL/L (136-145); TOTAL PROTEIN 6.4 G/DL (5.7-8.2)
== END ==
LOC: M PLALAB 09:11
PROVIDERS: ATTEND Urology
DX: N32.89 Other specified disorders of bladder (principal)

== ENCOUNTER → 2024-08-28 | Outpatient (REF) | payer OTHER ==
[2024-08-28 10:37] LABS: APPEARANCE, URINE CLEAR (CLEAR); BACTERIA, URINE AUTO NEGATIVE (NEGATIVE); BILIRUBIN, URINE AUTO NEGATIVE (NEGATIVE); BLOOD, URINE BLOOD 1+ (NEGATIVE); COLOR, URINE STRAW (YELLOW); GLUCOSE, URINE (UA) AUTO NEGATIVE (NEGATIVE); KETONE, URINE AUTO NEGATIVE (NEGATIVE); LEUKOCYTE ESTERASE, URINE AUTO NEGATIVE (NEGATIVE); NITRITE, URINE AUTO NEGATIVE (NEGATIVE); PROTEIN, URINE AUTO NEGATIVE (NEGATIVE); RBC, URINE AUTO 0 /HPF (0-3); SPECIFIC GRAVITY URINE AUTO 1.003 (1.002-1.035); SQUAMOUS EPITHELIAL CELL UR AU 0 /HPF (0-6); UROBILINOGEN, URINE AUTO 0.2 mg/dL (0.0-2.0); WBC, URINE AUTO 0 /HPF (0-3)
== END ==
LOC: M SMT 09:43
PROVIDERS: ATTEND Urology
DX: D49.4 Neoplasm of unspecified behavior of bladder (principal)

== ENCOUNTER 2024-09-10 13:52 | Day surgery (SDC) | payer OTHER ==
[2024-09-01] MEDS: ceFAZolin SOD 2 GM in IV 1 EA IV ONE (06:00)
[~2024-09-10] VITALS: Ht 165.1 cm; Wt 93.0 kg
[2024-09-10] MEDS ORDERED: LR 1,000 ML IV SCH ×2 (14:30→16:40)
[2024-09-10] MEDS ORDERED: MIDAZOLAM INJ 2MG/2ML VIAL As Ordered ONE (15:39)
[2024-09-10] MEDS ORDERED: LIDOCAINE 2% 100MG/5ML SDV (FOR ANES.) As Ordered ONE (15:40)
[2024-09-10] MEDS ORDERED: ROCURONIUM BROMIDE 50MG/5ML VIAL As Ordered ONE (15:40)
[2024-09-10] MEDS ORDERED: ONDANSETRON 4MG 2ML VIAL As Ordered ONE (15:40)
[2024-09-10] MEDS ORDERED: fentaNYL 100 MCG/2 ML INJECTION As Ordered ONE (15:40)
[2024-09-10] MEDS ORDERED: propofoL 200 MG/20 ML VIAL As Ordered ONE (15:40)
[2024-09-10] MEDS: ceFAZolin SOD 2 GM in IV 1 EA IV ONE (16:20)
[2024-09-10] MEDS ORDERED: dexmedeTOMIDine (4MCG/ML)200MCG/50ML BTL (PRECEDEX) As Ordered ONE (16:23)
[2024-09-10] MEDS ORDERED: ACETAMINOPHEN 1000MG 100ML IV BAG As Ordered ONE (16:27)
[2024-09-10] MEDS ORDERED: SUGAMMADEX SODIUM 500 MG/5 ML VIAL (BRIDION) As Ordered ONE (16:27)
[2024-09-10] MEDS ORDERED: ONDANSETRON 4MG 2ML VIAL IV PRN (16:40)
[2024-09-10] MEDS ORDERED: MACR100C43 PO (16:44)
[2024-09-10] MEDS ORDERED: OXYB5TAB14 PO (16:44)
[2024-09-10] MEDS ORDERED: PYRI1TAB5 PO (16:44)
[2024-09-10] MEDS: oxyCODONE 5MG TAB PO PRN (17:07)
[2024-09-10] MEDS: fentaNYL 100 MCG/2 ML INJECTION IV PRN (17:24)
[2024-09-10] MEDS: oxyBUTYnin 5 MG TAB PO STA (17:26)
[2024-09-10 19:25] VITALS: BP 118/70; TEMP 98; O2SAT 96
== END 2024-09-10 19:30 | disposition home or self-care (01) ==
LOC: M SDC 13:52
PROVIDERS: ATTEND Urology
DX: N80.A0 Endometriosis of bladder, unspecified depth (principal); N30.80 Other cystitis without hematuria; F32.A Depression, unspecified; Z79.899 Other long term (current) drug therapy; Z88.0 Allergy status to penicillin; Z88.2 Allergy status to sulfonamides; Z88.5 Allergy status to narcotic agent
CPT/HCPCS: 52240; 81025; 88307; J0131; J0690; J1100; J2250; J2405; J3010

== ENCOUNTER → 2024-09-30 | Outpatient (REF) | payer OTHER ==
[~2024-09-30] MED LIST changes: +MACR100C43 PO; +OXYB5TAB14 PO; +PYRI1TAB5 PO
[2024-09-30 17:42] LABS: APPEARANCE, URINE CLEAR (CLEAR); BACTERIA, URINE AUTO 1+ (NEGATIVE); BILIRUBIN, URINE AUTO NEGATIVE (NEGATIVE); BLOOD, URINE BLOOD 2+ (NEGATIVE); COLOR, URINE STRAW (YELLOW); GLUCOSE, URINE (UA) AUTO NEGATIVE (NEGATIVE); KETONE, URINE AUTO NEGATIVE (NEGATIVE); LEUKOCYTE ESTERASE, URINE AUTO 1+ (NEGATIVE); NITRITE, URINE AUTO NEGATIVE (NEGATIVE); PROTEIN, URINE AUTO NEGATIVE (NEGATIVE); RBC, URINE AUTO 1 /HPF (0-3); SPECIFIC GRAVITY URINE AUTO 1.006 (1.002-1.035); SQUAMOUS EPITHELIAL CELL UR AU 0 /HPF (0-6); UROBILINOGEN, URINE AUTO 0.2 mg/dL (0.0-2.0); WBC, URINE AUTO 12 /HPF (0-3)
== END ==
LOC: M SMT 17:03
PROVIDERS: ATTEND Nurse Practitioner Family
DX: R30.0 Dysuria (principal)

== ENCOUNTER 2024-11-18 14:57 | Emergency (ER) | payer OTHER ==
[~2024-11-18] VITALS: Ht 165.1 cm; Wt 88.7 kg
[2024-11-18 16:33] LABS: BASO % 0.3 % (0.0-1.0); EOS # 0.1 10^3/uL (0.0-0.5); HEMATOCRIT 49.2 % (36.0-47.0); HEMOGLOBIN 17.1 g/dl (12.0-15.5); LYMPH # 1.3 10^3/uL (1.5-5.0); LYMPH % 12.6 % (24.0-44.0); MEAN CORPUSCULAR HEMOGLOBIN 31.7 pg (27.0-33.0); MEAN CORPUSCULAR HGB CONC 34.8 g/dl (32.0-36.5); MEAN CORPUSCULAR VOLUME 91.3 fl (80.0-96.0); MONO # 0.5 10^3/uL (0.0-0.8); MONO % 5.4 % (2.0-8.0); NEUTROPHILS # 8.1 10^3/uL (1.5-8.5); NEUTROPHILS % 80.4 % (36.0-66.0); PLATELET COUNT, AUTOMATED 307 10^3/uL (150-450); RED BLOOD COUNT 5.39 10^6/uL (4.00-5.40); WHITE BLOOD COUNT 10.1 10^3/uL (4.0-10.0)
[2024-11-18 17:00] LABS: LIPASE 27 U/L (12-53)
[2024-11-18 17:03] LABS: ALBUMIN 3.8 G/DL (3.2-5.2); ALKALINE PHOSPHATASE 61 U/L (35-104); ALT/SGPT 24 U/L (7.0-40); AST/SGOT 22 U/L (<34); BILIRUBIN,DIRECT 0.2 MG/DL (<0.4); BILIRUBIN,TOTAL 0.8 MG/DL (0.3-1.2); BLOOD UREA NITROGEN 10 MG/DL (9-23); CALCIUM LEVEL 9.2 MG/DL (8.5-10.1); CARBON DIOXIDE LEVEL 23 MMOL/L (20-31); CHLORIDE LEVEL 106 MMOL/L (98-107); GLOMERULAR FILTRATION RATE > 60.0 (>60); GLUCOSE, FASTING 81 MG/DL (60-100); MAGNESIUM LEVEL 2.1 MG/DL (1.8-2.4); POTASSIUM SERUM 3.5 MMOL/L (3.5-5.1); SODIUM LEVEL 139 MMOL/L (136-145); TOTAL PROTEIN 7.5 G/DL (5.7-8.2)
[2024-11-18 17:05] LABS: FREE T4 1.22 NG/DL (0.89-1.76); THYROID STIMULATING HORMONE 2.052 uIU/ML (0.55-4.78)
[2024-11-18] MEDS: NS (Normal Saline) 0.9% 1,000 ML IV ONE (17:10)
[2024-11-18] MEDS: ONDANSETRON 4MG 2ML VIAL IV ONE (17:10)
[2024-11-18] MEDS: MORPHINE 2 MG/ML 1ML VIAL IV ONE (17:11)
[2024-11-18 17:18] LABS: HCG, SERUM QUALITATIVE NEGATIVE (NEGATIVE)
[2024-11-18] MEDS ORDERED: ISOVUE-370 76% 100ML VIAL As Ordered ONE (17:33)
[2024-11-18] MEDS ORDERED: ONDA-282 PO (18:34)
[2024-11-18 19:27] VITALS: BP 136/99; TEMP 98; O2SAT 98
== END 2024-11-18 19:27 | disposition home or self-care (01) ==
LOC: M ED 14:57
DX: R11.10 Vomiting, unspecified (principal); R19.7 Diarrhea, unspecified; R00.0 Tachycardia, unspecified; Z88.1 Allergy status to other antibiotic agents; Z88.2 Allergy status to sulfonamides; Z79.899 Other long term (current) drug therapy
CPT/HCPCS: 74177; 80048; 80076; 83690; 83735; 84439; 84443; 84703; 85025; 87507; 93005; 96361; 96374; 96375; 99284; J2405; Q9967

== ENCOUNTER → 2025-03-16 | Outpatient (REF) | payer OTHER ==
[2025-03-16 18:13] LABS: APPEARANCE, URINE CLEAR (CLEAR); BACTERIA, URINE AUTO 1+ (NEGATIVE); BILIRUBIN, URINE AUTO NEGATIVE (NEGATIVE); BLOOD, URINE BLOOD 1+ (NEGATIVE); COLOR, URINE STRAW (YELLOW); GLUCOSE, URINE (UA) AUTO NEGATIVE (NEGATIVE); KETONE, URINE AUTO NEGATIVE (NEGATIVE); LEUKOCYTE ESTERASE, URINE AUTO NEGATIVE (NEGATIVE); NITRITE, URINE AUTO NEGATIVE (NEGATIVE); PROTEIN, URINE AUTO NEGATIVE (NEGATIVE); RBC, URINE AUTO 1 /HPF (0-3); SPECIFIC GRAVITY URINE AUTO 1.004 (1.002-1.035); SQUAMOUS EPITHELIAL CELL UR AU 0 /HPF (0-6); UROBILINOGEN, URINE AUTO 0.2 mg/dL (0.0-2.0); WBC, URINE AUTO 0 /HPF (0-3)
== END ==
LOC: M SMT 16:42
PROVIDERS: ATTEND Nurse Practitioner Family
DX: R31.21 Asymptomatic microscopic hematuria (principal)

== ENCOUNTER 2025-03-21 23:07 | Emergency (ER) | payer OTHER ==
[~2025-03-21] VITALS: Ht 165.1 cm; Wt 85.0 kg
[~2025-03-21 23:07] MED LIST changes: -DIFI200T PO
[2025-03-22 00:41] LABS: KETONE, URINE AUTO RFX NEGATIVE (NEGATIVE); LEUKOCYTE ESTERASE UR AUTO RFX NEGATIVE (NEGATIVE); MUCUS, URINE RFX SMALL (NEGATIVE); NITRITE, URINE AUTO RFX NEGATIVE (NEGATIVE); RBC, URINE AUTO RFX 6 /HPF (0-3); SQUAM EPITHELIAL CELL UR AURFX 6 /HPF (0-6); WBC, URINE AUTO RFX 2 /HPF (0-3)
[2025-03-22 01:00] LABS: BASO % 0.2 % (0.0-1.0); EOS # 0.4 10^3/uL (0.0-0.5); EOS % 3.2 % (0.0-3.0); HEMATOCRIT 49.5 % (36.0-47.0); LYMPH # 1.8 10^3/uL (1.5-5.0); LYMPH % 16.4 % (24.0-44.0); MEAN CORPUSCULAR HEMOGLOBIN 30.7 pg (27.0-33.0); MEAN CORPUSCULAR HGB CONC 34.3 g/dl (32.0-36.5); MEAN CORPUSCULAR VOLUME 89.4 fl (80.0-96.0); MONO # 0.6 10^3/uL (0.0-0.8); MONO % 5.4 % (2.0-8.0); NEUTROPHILS # 8.4 10^3/uL (1.5-8.5); NEUTROPHILS % 74.4 % (36.0-66.0); PLATELET COUNT, AUTOMATED 318 10^3/uL (150-450); RED BLOOD COUNT 5.54 10^6/uL (4.00-5.40); WHITE BLOOD COUNT 11.2 10^3/uL (4.0-10.0)
[2025-03-22 01:07] LABS: ALBUMIN 3.9 G/DL (3.2-5.2); ALKALINE PHOSPHATASE 55 U/L (35-104); ALT/SGPT 21 U/L (7.0-40); AST/SGOT 34 U/L (<34); BILIRUBIN,DIRECT 0.1 MG/DL (<0.4); BILIRUBIN,TOTAL 0.7 MG/DL (0.3-1.2); LIPASE 38 U/L (12-53); TOTAL PROTEIN 7.5 G/DL (5.7-8.2)
[2025-03-22 01:39] LABS: BLOOD UREA NITROGEN 10 MG/DL (9-23); CARBON DIOXIDE LEVEL 21 MMOL/L (20-31); CHLORIDE LEVEL 107 MMOL/L (98-107); CREATININE FOR GFR 0.73 MG/DL (0.55-1.30); GLOMERULAR FILTRATION RATE > 90.0 (>60); GLUCOSE, FASTING 91 MG/DL (60-100); POTASSIUM SERUM 4.8 MMOL/L (3.5-5.1); SODIUM LEVEL 140 MMOL/L (136-145)
[2025-03-22] MEDS ORDERED: ONDA-282 PO (01:49)
[2025-03-22] MEDS ORDERED: DIFI200T PO (01:49)
[2025-03-22 02:15] VITALS: BP 127/82; TEMP 98.6; O2SAT 95
[2025-03-22] MEDS: FIDAXOMICIN 200 MG TAB (DIFICID) PO ONE (02:15)
== END 2025-03-22 02:21 | disposition home or self-care (01) ==
LOC: M ED 23:07
DX: A04.72 Enterocolitis due to Clostridium difficile, not specified as recurrent (principal); Z88.1 Allergy status to other antibiotic agents; Z88.2 Allergy status to sulfonamides; Z79.899 Other long term (current) drug therapy

== ENCOUNTER → 2025-03-21 | Outpatient (REF) | payer OTHER ==
[~2025-03-21] MED LIST changes: +DIFI200T PO
== END ==
LOC: M LAB REF 18:17
DX: R19.7 Diarrhea, unspecified (principal)

== ENCOUNTER → 2025-04-08 | Outpatient (REF) | payer OTHER ==
[~2025-04-08] MED LIST changes: +DIFI200T PO
[2025-04-11 16:57] LABS: HPV APTIMA Not Detected (Not Detected)
== END ==
LOC: M SFHCWAGY 09:30
PROVIDERS: ATTEND Nurse Practitioner Family
DX: Z12.4 Encounter for screening for malignant neoplasm of cervix (principal); R87.610 Atypical squamous cells of undetermined significance on cytologic smear of cervix (ASC-US)
CPT/HCPCS: 87624; G0123